=== PATIENT | male | born 1955 | race Hispanic/Latino ===

== ENCOUNTER 2020-07-14 09:03 | Inpatient (IN) | payer MEDICAID, OTHER ==
[~2020-07-14] VITALS: Ht 157.5 cm; Wt 73.0 kg
[2020-07-14] VITALS (20 sets, daily range): BP systolic 98–149; BP diastolic 69–97
[2020-07-14] MEDS ORDERED: MECLIZINE HCL 25 MG TABLET ONE (09:47)
[2020-07-14 10:11] LABS: BASOPHILS % (AUTO) 0.2 % (0.0-5.0); EOSINOPHILS % (AUTO) 0.1 % (0.0-8.0); HEMATOCRIT 32.3 % (42-54); LYMPHOCYTES % (AUTO) 3.4 % (21.0-51.0); MEAN CORPUSCULAR HEMOGLOBIN 38.2 pg (27.0-33.0); MEAN CORPUSCULAR HGB CONC 35.9 g/dL (32.0-36.0); MEAN CORPUSCULAR VOLUME 106.3 fL (79-99); NEUTROPHILS % (AUTO) 91.1 % (40.0-77.0); NUCLEATED RED BLOOD CELLS 0.1 % (0.0-0.19); PLATELET COUNT (AUTO) 162 K/uL (130-400); RED BLOOD CELL COUNT(AUTO) 3.04 MIL/uL (4.50-6.20); RED CELL DISTRIBUTION WIDTH 13.1 % (11.0-15.5); WHITE BLOOD COUNT (AUTO) 17.8 K/uL (4.8-10.8)
[2020-07-14 10:30] LABS: BILIRUBIN,TOTAL 3.7 mg/dL (0.2-1.0); CREATININE 3.3 mg/dL (0.5-1.5); TOTAL PROTEIN, SERUM 6.6 g/dL (6.0-8.3)
[2020-07-14 10:33] LABS: POTASSIUM 2.3 mmol/L (3.5-5.1)
[2020-07-14] MEDS ORDERED: NS-20 MEQ KCL 1000ML 1,000 ML IV ONE (11:04)
[2020-07-14] MEDS ORDERED: VANCOMYCIN PROTOCOL PER PHARMACY IV SCH (11:45)
[2020-07-14] MEDS ORDERED: LACTATED RINGERS 1000ML 2,000 ML IV SCH (11:45)
[2020-07-14] MEDS ORDERED: ZOSYN 3.375GM+NS 50ML 50 ML IV SCH (11:45)
[2020-07-14] MEDS ORDERED: LACTATED RINGERS 1000ML 2,000 ML IV ONE (11:47)
[2020-07-14] MEDS ORDERED: ZOSYN 3.375GM+NS 50ML 50 ML IV ONE (12:02)
[2020-07-14] MEDS ORDERED: NOREPINEPHRIN 4MG/NS 250ML 250 ML IV SCH (12:15)
[2020-07-14] MEDS ORDERED: NOREPINEPHRIN 4MG/NS 250ML 250 ML IV ONE (12:30)
[2020-07-14 13:47] LABS: CREATININE 4.3 mg/dL (0.5-1.5)
[2020-07-14] MEDS ORDERED: TELM1TAB42 PO (14:48)
[2020-07-14] MEDS ORDERED: [UNRECOGNIZED DRUG - OTHER] PO (14:48)
[2020-07-14] MEDS: POTASSIUM CHLORIDE 10MEQ/100ML 100 ML IV PRN ×2 (15:28→21:34)
[2020-07-14] MEDS ORDERED: VANCOMYCIN 1G/250ML KIT 250 ML IV SCH (15:30)
[2020-07-14] MEDS: LACTATED RINGERS 1000ML 1,000 ML IV SCH ×2 (16:53→22:27)
[2020-07-14 18:22] LABS: INR 1.19 (0.85-1.15); PROTHROMBIN TIME 12.8 SEC (9.6-11.6)
[2020-07-14 18:24] LABS: PARTIAL THROMBOPLASTIN TIME 33.6 SEC (26.3-35.5)
[2020-07-14 18:28] LABS: APPEARANCE,URINE SL CLOUDY (CLEAR); BILIRUBIN,URINE SMALL (NEGATIVE); COLOR,URINE YELLOW (YELLOW); GLUCOSE, URINE (UA) NEGATIVE (NEGATIVE); KETONES,URINE NEGATIVE (NEGATIVE); LEUKOCYTE ESTERASE ,URINE MODERATE (NEGATIVE); NITRATE,URINE NEGATIVE (NEGATIVE); OCCULT BLOOD,URINE LARGE (NEGATIVE); PROTEIN,URINE 100 mg/dL (NEGATIVE); UROBILINOGEN,URINE 0.2 mg/dL (0.2-1.0)
[2020-07-14 18:29] LABS: ABG BASE EXCESS 0.5 mmol/L (-2.0-3.0); ABG HCO3 23.2 mmol/L (21.0-28.0); ABG OXYGEN SATURATION 97.7 % (95.0-99.0); ABG PCO2 32 mmHg (35-48)
[2020-07-14 18:41] LABS: AMPHET/METH SCREEN,URINE NEGATIVE (NEGATIVE); BARBITURATE SCREEN, URINE NEGATIVE (NEGATIVE); BENZODIAZEPINES SCREEN,URINE NEGATIVE (NEGATIVE); CANNABINOID SCREEN,URINE NEGATIVE (NEGATIVE); COCAINE SCREEN,URINE NEGATIVE (NEGATIVE); OPIATE SCREEN,URINE NEGATIVE (NEGATIVE); PHENCYCLIDINE SCREEN,URINE NEGATIVE (NEGATIVE)
[2020-07-14 18:52] LABS: BACTERIA,URINE Moderate /HPF (None Seen); SQUAMOUS EPITHELIAL CELL,UR Few /HPF (0-2)
[2020-07-14] MEDS ORDERED: IODIXANOL 320 MG/ML 100 ML VIAL ONE (19:46)
[2020-07-14] MEDS ORDERED: SODIUM BICARB 50MEQ 50ML VIAL 50 ML ONE (19:46)
[2020-07-14] MEDS ORDERED: FENTANYL CITRATE PF 50 MCG/1 ML 2ML VIAL ONE (19:47)
[2020-07-14] MEDS ORDERED: MIDAZOLAM HCL 1 MG/ML 2ML VIAL ONE (19:47)
[2020-07-14] MEDS ORDERED: LIDOCAINE HCL 400MG/20ML VIAL ONE (19:47)
[2020-07-14] MEDS: ZOSYN 3.375GM+NS 50ML 50 ML IV SCH (21:49)
[2020-07-15] VITALS (15 sets, daily range): BP systolic 100–133; BP diastolic 65–85
[2020-07-15] MEDS: LACTATED RINGERS 1000ML 1,000 ML IV SCH ×3 (05:42→20:12)
[2020-07-15 05:45] LABS: BASOPHILS % (AUTO) 0.2 % (0.0-5.0); EOSINOPHILS % (AUTO) 0.7 % (0.0-8.0); HEMATOCRIT 30.1 % (42-54); MEAN CORPUSCULAR HEMOGLOBIN 37.4 pg (27.0-33.0); MEAN CORPUSCULAR HGB CONC 35.5 g/dL (32.0-36.0); MEAN CORPUSCULAR VOLUME 105.2 fL (79-99); MONOCYTES % (AUTO) 4.1 % (3.0-13.0); NEUTROPHILS % (AUTO) 86.3 % (40.0-77.0); PLATELET COUNT (AUTO) 104 K/uL (130-400); RED BLOOD CELL COUNT(AUTO) 2.86 MIL/uL (4.50-6.20); RED CELL DISTRIBUTION WIDTH 13.1 % (11.0-15.5); WHITE BLOOD COUNT (AUTO) 11.3 K/uL (4.8-10.8)
[2020-07-15 06:12] LABS: ALBUMIN 2.4 g/dL (3.5-5.0); BILIRUBIN,TOTAL 1.6 mg/dL (0.2-1.0); CREATININE 3.6 mg/dL (0.5-1.5); POTASSIUM 3.3 mmol/L (3.5-5.1)
[2020-07-15] MEDS: ZOSYN 3.375GM+NS 50ML 50 ML IV SCH ×2 (09:43→21:50)
[2020-07-15] MEDS ORDERED: TAMSULOSIN HCL 0.4 MG CAP.ER.24H PO SCH (09:45)
[2020-07-15] MEDS ORDERED: FOLIC ACID 1 MG TABLET PO SCH (09:45)
[2020-07-15] MEDS ORDERED: THIAMINE HCL 100 MG TABLET PO SCH (09:45)
[2020-07-15 14:06] LABS: CREATININE 3.1 mg/dL (0.5-1.5)
[2020-07-15 14:07] LABS: POTASSIUM 2.8 mmol/L (3.5-5.1)
[2020-07-15] MEDS: POTASSIUM CHLORIDE 10MEQ/100ML 100 ML IV PRN (20:52)
[2020-07-16] VITALS (20 sets, daily range): BP systolic 99–164; BP diastolic 56–93
[2020-07-16] MEDS: LACTATED RINGERS 1000ML 1,000 ML IV SCH ×4 (01:42→19:57)
[2020-07-16] MEDS: POTASSIUM CHLORIDE 10MEQ/100ML 100 ML IV PRN ×3 (01:44→08:06)
[2020-07-16 03:53] LABS: BASOPHILS % (AUTO) 0.4 % (0.0-5.0); EOSINOPHILS % (AUTO) 4.9 % (0.0-8.0); HEMATOCRIT 28.5 % (42-54); LYMPHOCYTES % (AUTO) 16.8 % (21.0-51.0); MEAN CORPUSCULAR HEMOGLOBIN 37.1 pg (27.0-33.0); MEAN CORPUSCULAR HGB CONC 35.8 g/dL (32.0-36.0); MEAN CORPUSCULAR VOLUME 103.6 fL (79-99); MONOCYTES % (AUTO) 7.2 % (3.0-13.0); PLATELET COUNT (AUTO) 108 K/uL (130-400); RED BLOOD CELL COUNT(AUTO) 2.75 MIL/uL (4.50-6.20); RED CELL DISTRIBUTION WIDTH 12.7 % (11.0-15.5); WHITE BLOOD COUNT (AUTO) 6.8 K/uL (4.8-10.8)
[2020-07-16 04:11] LABS: ALBUMIN 2.2 g/dL (3.5-5.0); CREATININE 2.3 mg/dL (0.5-1.5); TOTAL PROTEIN, SERUM 5.7 g/dL (6.0-8.3)
[2020-07-16] MEDS: ZOSYN 3.375GM+NS 50ML 50 ML IV SCH ×2 (08:22→20:47)
[2020-07-16] MEDS: THIAMINE HCL 100 MG TABLET PO SCH (08:22)
[2020-07-16] MEDS: FOLIC ACID 1 MG TABLET PO SCH (08:23)
[2020-07-16] MEDS ORDERED: POTASSIUM CHLORIDE 10% ELIXIR 20 MEQ/15 ML UDCUP ONE (08:33)
[2020-07-16 12:01] LABS: CREATININE 1.9 mg/dL (0.5-1.5); POTASSIUM 3.3 mmol/L (3.5-5.1)
[2020-07-16] MEDS ORDERED: LIDOCAINE HCL-MPF 1% 2ML VIAL IJ PRN (13:00)
[2020-07-16] MEDS ORDERED: POTASSIUM CHLORIDE 20MEQ/100ML 100 ML IV PRN (13:00)
[2020-07-16] MEDS: KCL 20 MEQ ERTAB PO PRN ×2 (13:45→16:39)
[2020-07-16] MEDS ORDERED: 0.9%NACL 100ML 100 ML IV ONE (20:51)
[2020-07-16] MEDS ORDERED: TAMSULOSIN HCL 0.4 MG CAP.ER.24H PO SCH (21:00)
[2020-07-17 03:03] VITALS: BP 147/98
[2020-07-17 05:14] LABS: BASOPHILS % (AUTO) 0.8 % (0.0-5.0); EOSINOPHILS % (AUTO) 5.7 % (0.0-8.0); HEMATOCRIT 28.2 % (42-54); LYMPHOCYTES % (AUTO) 19.3 % (21.0-51.0); MEAN CORPUSCULAR HEMOGLOBIN 36.8 pg (27.0-33.0); MEAN CORPUSCULAR HGB CONC 35.1 g/dL (32.0-36.0); MEAN CORPUSCULAR VOLUME 104.8 fL (79-99); MONOCYTES % (AUTO) 10.3 % (3.0-13.0); NEUTROPHILS % (AUTO) 63.3 % (40.0-77.0); PLATELET COUNT (AUTO) 104 K/uL (130-400); RED BLOOD CELL COUNT(AUTO) 2.69 MIL/uL (4.50-6.20); RED CELL DISTRIBUTION WIDTH 13.1 % (11.0-15.5); WHITE BLOOD COUNT (AUTO) 5.2 K/uL (4.8-10.8)
[2020-07-17 05:23] LABS: CREATININE 1.3 mg/dL (0.5-1.5)
[2020-07-17] MEDS: POTASSIUM CHLORIDE 10% ELIXIR 20 MEQ/15 ML UDCUP PO PRN ×4 (05:58→17:10)
[2020-07-17 08:00] VITALS: BP 132/78
[2020-07-17] MEDS: ZOSYN 3.375GM+NS 50ML 50 ML IV SCH (09:37)
[2020-07-17] MEDS: FOLIC ACID 1 MG TABLET PO SCH (09:38)
[2020-07-17] MEDS: THIAMINE HCL 100 MG TABLET PO SCH (09:38)
[2020-07-17] MEDS: KCL 20 MEQ ERTAB PO PRN (10:13)
[2020-07-17 11:40] VITALS: BP 147/88
[2020-07-17] MEDS ORDERED: TAMS-1 PO (13:15)
[2020-07-17 16:00] VITALS: BP 143/85
[2020-08-29] MEDS ORDERED: LOSA50TA64 PO (16:19)
[2020-09-19] MEDS ORDERED: CEFD300C3 PO (13:50)
[2020-09-19] MEDS ORDERED: TAMS-1 PO (13:57)
== END 2020-07-17 19:30 | disposition home or self-care (01) | DRG 871 ==
LOC: EDH 09:03 → EDHIP 09:04 → 2DH 14:44 → 3DH 07-16 23:44
PROVIDERS: ADMIT Internal Medicine; ATTEND Internal Medicine
PROC: 0F943ZZ Drainage of Gallbladder, Percutaneous Approach (ICD-10-PCS; principal; 2020-07-14)
DX: A41.50 Gram-negative sepsis, unspecified (principal); R65.21 Severe sepsis with septic shock; N17.9 Acute kidney failure, unspecified; E87.2 Acidosis; N39.0 Urinary tract infection, site not specified; K81.0 Acute cholecystitis; E87.1 Hypo-osmolality and hyponatremia; E87.6 Hypokalemia; E86.9 Volume depletion, unspecified; K21.9 Gastro-esophageal reflux disease without esophagitis; R53.81 Other malaise; B96.1 Klebsiella pneumoniae [K. pneumoniae] as the cause of diseases classified elsewhere; E11.9 Type 2 diabetes mellitus without complications; I10 Essential (primary) hypertension; N40.0 Benign prostatic hyperplasia without lower urinary tract symptoms; R62.7 Adult failure to thrive; Z20.822 Contact with and (suspected) exposure to COVID-19; Z68.29 Body mass index [BMI] 29.0-29.9, adult; Z87.891 Personal history of nicotine dependence; Z90.49 Acquired absence of other specified parts of digestive tract
CPT/HCPCS: 10030; 36415; 36600; 47490; 70450; 71045; 74176; 76705; 80048; 80053; 80305; 81001; 82803; 82948; 83540; 83550; 83605; 83735; 84145; 84484; 85025; 85610; 85730; 87040; 87070; 87076; 87077; 87088; 87186; 87426; 93005; 93306; 93356; 97039; G0378; J1644; J2250; J2543; J3010; J3370; J3480; J3490; J7120; Q9967; U0003

== ENCOUNTER 2020-09-02 09:15 | Inpatient (IN) | payer MEDICAID ==
[2020-08-26 12:53] LABS: BASOPHILS % (AUTO) 0.6 % (0.0-5.0); EOSINOPHILS % (AUTO) 9.1 % (0.0-8.0); LYMPHOCYTES % (AUTO) 32.3 % (21.0-51.0); MEAN CORPUSCULAR HEMOGLOBIN 36.4 pg (27.0-33.0); MEAN CORPUSCULAR HGB CONC 34.2 g/dL (32.0-36.0); MEAN CORPUSCULAR VOLUME 106.5 fL (79-99); NEUTROPHILS % (AUTO) 49.6 % (40.0-77.0); PLATELET COUNT (AUTO) 215 K/uL (130-400); RED BLOOD CELL COUNT(AUTO) 3.38 MIL/uL (4.50-6.20); RED CELL DISTRIBUTION WIDTH 15.1 % (11.0-15.5); WHITE BLOOD COUNT (AUTO) 5.3 K/uL (4.8-10.8)
[2020-08-26 12:58] LABS: BILIRUBIN,TOTAL 1.8 mg/dL (0.2-1.0); CREATININE 0.9 mg/dL (0.5-1.5); POTASSIUM 3.7 mmol/L (3.5-5.1); TOTAL PROTEIN, SERUM 7.7 g/dL (6.0-8.3)
[2020-08-29 16:30] VITALS: BP 125/80
[2020-09-02] VITALS (31 sets, daily range): BP systolic 106–189; BP diastolic 55–111
[~2020-09-02] VITALS: Ht 154.9 cm; Wt 73.8 kg
[2020-09-02] MEDS: SODIUM CHLORIDE 0.9% 500ML 500 ML IV SCH ×2 (05:00→13:30)
[~2020-09-02 09:15] MED LIST: LOSA50TA64 PO; TAMS-1 PO
[2020-09-02] MEDS ORDERED: LACTATED RINGERS 1000ML 1,000 ML IV ONE (10:48)
[2020-09-02] MEDS ORDERED: LIDOCAINE PF 2% 5ML ABBOJECT ONE (11:24)
[2020-09-02] MEDS ORDERED: PROPOFOL 10 MG/ML 20ML VIAL IV ONE (11:24)
[2020-09-02] MEDS ORDERED: FENTANYL CITRATE PF 50 MCG/1 ML 2ML VIAL ONE ×2 (11:24→13:22)
[2020-09-02] MEDS ORDERED: ROCURONIUM 10MG/1ML SYR 10 MG/ML ML ONE (11:25)
[2020-09-02] MEDS ORDERED: MIDAZOLAM HCL 1 MG/ML 2ML VIAL ONE (11:29)
[2020-09-02] MEDS ORDERED: IOHEXOL-350 50ML VIAL IV ONE (11:43)
[2020-09-02] MEDS: CEFAZOLIN SODIUM 1 GM VIAL IVP SCH ×3 (11:49→20:18)
[2020-09-02] MEDS ORDERED: BUPIVACAINE/PF 0.5% 30ML VIAL ONE (12:38)
[2020-09-02] MEDS ORDERED: EPHEDRINE SULFATE 50 MG/ML AMPULE ONE (13:07)
[2020-09-02] MEDS ORDERED: NEOSTIGMINE 5MG/5ML SYR IV ONE (13:37)
[2020-09-02] MEDS ORDERED: GLYCOPYRROLATE 1 MG/5 ML SYRINGE ONE (13:37)
[2020-09-02] MEDS ORDERED: LABETALOL HCL 5 MG/ML 20ML VIAL IV ONE (14:03)
[2020-09-02] MEDS ORDERED: MEPERIDINE-PF 25 MG/ML SYG ONE ×2 (14:15→14:40)
[2020-09-02] MEDS ORDERED: HYDRALAZINE HCL 20 MG/ML VIAL ONE (14:33)
[2020-09-02] MEDS ORDERED: MORPHINE SULFATE 4 MG/1ML SYG IVP PRN (19:00)
[2020-09-02] MEDS ORDERED: ONDANSETRON HCL 4 MG/2 ML VIAL IVP PRN (19:00)
[2020-09-02] MEDS: LACTATED RINGERS 1000ML 1,000 ML IV SCH ×2 (20:18→23:59)
[2020-09-02] MEDS: KETOROLAC TROMETHAMINE 15MG/ML IV SCH (20:18)
[2020-09-03] MEDS: KETOROLAC TROMETHAMINE 15MG/ML IV SCH ×4 (01:53→19:55)
[2020-09-03 03:54] VITALS: BP 146/94
[2020-09-03] MEDS: CEFAZOLIN SODIUM 1 GM VIAL IVP SCH (04:12)
[2020-09-03] MEDS: LACTATED RINGERS 1000ML 1,000 ML IV SCH ×2 (04:38→15:34)
[2020-09-03 05:21] LABS: HEMATOCRIT 27.2 % (42-54); MEAN CORPUSCULAR HEMOGLOBIN 37.7 pg (27.0-33.0); MEAN CORPUSCULAR HGB CONC 35.7 g/dL (32.0-36.0); MEAN CORPUSCULAR VOLUME 105.8 fL (79-99); PLATELET COUNT (AUTO) 152 K/uL (130-400); RED BLOOD CELL COUNT(AUTO) 2.57 MIL/uL (4.50-6.20); RED CELL DISTRIBUTION WIDTH 14.9 % (11.0-15.5); WHITE BLOOD COUNT (AUTO) 7.5 K/uL (4.8-10.8)
[2020-09-03 05:45] LABS: ALBUMIN 3.2 g/dL (3.5-5.0); BILIRUBIN,TOTAL 1.9 mg/dL (0.2-1.0); CREATININE 1.2 mg/dL (0.5-1.5); POTASSIUM 3.8 mmol/L (3.5-5.1); TOTAL PROTEIN, SERUM 6.3 g/dL (6.0-8.3)
[2020-09-03 08:19] VITALS: BP 151/98
[2020-09-03 12:00] VITALS: BP 180/107
[2020-09-03] MEDS: DOCUSATE SODIUM 100 MG CAP PO SCH ×2 (12:19→19:54)
[2020-09-03] MEDS: LOSARTAN 50 MG TABLET PO SCH (15:33)
[2020-09-03 16:00] VITALS: BP 129/83
[2020-09-03 19:45] VITALS: BP 147/90
[2020-09-03] MEDS: TAMSULOSIN HCL 0.4 MG CAP.ER.24H PO SCH (19:54)
[2020-09-04] VITALS (8 sets, daily range): BP systolic 86–133; BP diastolic 50–83
[2020-09-04] MEDS: KETOROLAC TROMETHAMINE 15MG/ML IV SCH ×4 (01:28→18:15)
[2020-09-04] MEDS: LACTATED RINGERS 1000ML 1,000 ML IV SCH ×3 (01:55→19:51)
[2020-09-04 05:35] LABS: HEMATOCRIT 25.8 % (42-54); MEAN CORPUSCULAR HGB CONC 33.7 g/dL (32.0-36.0); MEAN CORPUSCULAR VOLUME 106.6 fL (79-99); RED BLOOD CELL COUNT(AUTO) 2.42 MIL/uL (4.50-6.20); RED CELL DISTRIBUTION WIDTH 14.9 % (11.0-15.5); WHITE BLOOD COUNT (AUTO) 10.4 K/uL (4.8-10.8)
[2020-09-04 05:48] LABS: CREATININE 1.3 mg/dL (0.5-1.5)
[2020-09-04] MEDS ORDERED: POTASSIUM CHLORIDE 20 MEQ ERTAB PO PRN (07:30)
[2020-09-04] MEDS ORDERED: POTASSIUM CHLORIDE 20MEQ/100ML 100 ML IV PRN (07:30)
[2020-09-04] MEDS ORDERED: LIDOCAINE HCL-MPF 1% 2ML VIAL IV PRN (07:30)
[2020-09-04] MEDS ORDERED: POTASSIUM CHLORIDE 10% ELIXIR 20 MEQ/15 ML UDCUP PO PRN (07:30)
[2020-09-04] MEDS: LOSARTAN 50 MG TABLET PO SCH (08:41)
[2020-09-04] MEDS: DOCUSATE SODIUM 100 MG CAP PO SCH ×2 (08:41→19:50)
[2020-09-04] MEDS: ACETAMINOPHEN-CODEINE 300/30MG TAB PO PRN (08:42)
[2020-09-04 09:13] LABS: ALBUMIN 2.9 g/dL (3.5-5.0); BILIRUBIN,TOTAL 4.2 mg/dL (0.2-1.0); CREATININE 1.2 mg/dL (0.5-1.5); TOTAL PROTEIN, SERUM 6.1 g/dL (6.0-8.3)
[2020-09-04] MEDS: TAMSULOSIN HCL 0.4 MG CAP.ER.24H PO SCH (19:50)
[2020-09-05] MEDS: KETOROLAC TROMETHAMINE 15MG/ML IV SCH ×3 (01:32→13:00)
[2020-09-05 03:21] VITALS: BP 93/57
[2020-09-05] MEDS: LACTATED RINGERS 1000ML 1,000 ML IV SCH (07:00)
[2020-09-05 08:10] VITALS: BP 120/80
[2020-09-05 08:18] LABS: ALBUMIN 2.7 g/dL (3.5-5.0); BILIRUBIN,DIRECT 1.1 mg/dL (0.0-0.3); BILIRUBIN,TOTAL 3.6 mg/dL (0.2-1.0)
[2020-09-05] MEDS: LOSARTAN 50 MG TABLET PO SCH (09:14)
[2020-09-05] MEDS: DOCUSATE SODIUM 100 MG CAP PO SCH (09:14)
[2020-09-05] MEDS: ACETAMINOPHEN-CODEINE 300/30MG TAB PO PRN (09:15)
[2020-09-05 11:35] VITALS: BP 95/58
== END 2020-09-05 15:30 | disposition home or self-care (01) | DRG 261 ==
LOC: DAH 09:15 → DAHIP 09:16 → DAH 09:16 → OBSVTOIN 09:16 → 3DH 16:52
PROVIDERS: ADMIT Surgery; ATTEND Surgery
PROC: BF121ZZ Fluoroscopy of Gallbladder using Low Osmolar Contrast (ICD-10-PCS; 2020-09-02)
PROC: 0FP440Z Removal of Drainage Device from Gallbladder, Percutaneous Endoscopic Approach (ICD-10-PCS; 2020-09-02)
PROC: 0FT44ZZ Resection of Gallbladder, Percutaneous Endoscopic Approach (ICD-10-PCS; principal; 2020-09-02 12:36)
DX: K81.0 Acute cholecystitis (principal); R18.8 Other ascites; D64.9 Anemia, unspecified; E11.9 Type 2 diabetes mellitus without complications; I10 Essential (primary) hypertension; N40.0 Benign prostatic hyperplasia without lower urinary tract symptoms; Z20.822 Contact with and (suspected) exposure to COVID-19; Z98.49 Cataract extraction status, unspecified eye
CPT/HCPCS: 36415; 74181; 80048; 80053; 80076; 82948; 84132; 85025; 85027; 93005; C1758; C9803; G0378; J0360; J0690; J1885; J2001; J2175; J2250; J2270; J2405; J2704; J2710; J3010; J3480; J3490; J7030; J7120; Q9967; U0003

== ENCOUNTER 2020-10-01 09:58 | Day surgery (SDC) | payer MEDICAID ==
[~2020-10-01 09:58] MED LIST changes: +CEFD300C3 PO
[2020-10-01 11:23] LABS: CREATININE 0.8 mg/dL (0.5-1.5); POTASSIUM 4.7 mmol/L (3.5-5.1)
[2020-10-01 12:15] LABS: INR 1.07 (0.85-1.15); PROTHROMBIN TIME 11.6 SEC (9.6-11.6)
[2020-10-01 12:16] LABS: PARTIAL THROMBOPLASTIN TIME 26.9 SEC (26.3-35.5)
[2020-10-01] MEDS ORDERED: SODIUM CHLORIDE 0.9% 1000ML 1,000 ML IV ONE (15:11)
== END 2020-10-01 13:50 | disposition home or self-care (01) ==
LOC: DAH 09:58
PROVIDERS: ATTEND Surgery
DX: K80.13 Calculus of gallbladder with acute and chronic cholecystitis with obstruction (principal); Z79.01 Long term (current) use of anticoagulants
CPT/HCPCS: 36415; 49423; 49424; 74150; 75984; 76080; 80048; 85610; 85730; A4215; A4216; A4221; A4222; A4223 ×3; A4606; A4663; C1729; C1769 ×2; J7030

== ENCOUNTER 2020-10-01 10:36 | Outpatient (CLI) | payer MEDICAID ==
[2020-10-01] MEDS ORDERED: IODIXANOL 320 MG/ML 100 ML VIAL ONE (11:46)
[2020-10-01] MEDS ORDERED: LIDOCAINE HCL 1% MDV 50ML VIAL ONE (11:46)
== END 2020-10-01 13:50 | disposition home or self-care (01) ==
LOC: RAH 10:36
PROVIDERS: ATTEND Surgery
DX: K80.13 Calculus of gallbladder with acute and chronic cholecystitis with obstruction (principal)
CPT/HCPCS: J1644; J3490; Q9967

== ENCOUNTER 2020-10-02 11:06 | Emergency (ER) | payer MEDICAID | END 2020-10-02 13:43 | disposition home or self-care (01) | LOC: EDH 11:06 | DX: G89.18 Other acute postprocedural pain (principal); E11.9 Type 2 diabetes mellitus without complications; I10 Essential (primary) hypertension; Z90.49 Acquired absence of other specified parts of digestive tract; Z87.891 Personal history of nicotine dependence | CPT/HCPCS: 99281 ==

== ENCOUNTER → 2020-10-09 | Outpatient (CLI) | payer MEDICAID ==
[2020-10-09 13:24] LABS: CREATININE 0.7 mg/dL (0.5-1.5); POTASSIUM 3.7 mmol/L (3.5-5.1)
== END | disposition home or self-care (01) ==
LOC: RAH 12:43
PROVIDERS: ATTEND Surgery
DX: R10.9 Unspecified abdominal pain (principal); L02.211 Cutaneous abscess of abdominal wall
CPT/HCPCS: 36415; 80048

== ENCOUNTER → 2020-10-16 | Outpatient (CLI) | payer MEDICAID ==
[~2020-10-16] MED LIST changes: +IOHEXOL-350 75 ML VIAL IV ONE
== END | disposition home or self-care (01) ==
LOC: RAH 09:35
PROVIDERS: ATTEND Surgery
DX: L02.211 Cutaneous abscess of abdominal wall (principal); I70.8 Atherosclerosis of other arteries
CPT/HCPCS: 74160; Q9967

== ENCOUNTER 2023-10-10 19:16 | Emergency (ER) | payer MEDICARE ==
[~2023-10-10] VITALS: Ht 157.5 cm; Wt 68.0 kg
[~2023-10-10 19:16] MED LIST changes: -IOHEXOL-350 75 ML VIAL IV ONE
[2023-10-10 20:25] VITALS: BP 140/79; PULSE 82; RESP 20
[2023-10-10 21:58] LABS: BASOPHILS # (AUTO) 0.03 K/uL (0.00-0.20); BASOPHILS % (AUTO) 0.6 % (0.0-5.0); EOSINOPHILS # (AUTO) 0.36 K/uL (0.00-0.70); EOSINOPHILS % (AUTO) 6.7 % (0.0-8.0); HEMATOCRIT 31.9 % (42-54); IMMATURE GRANULOCYTE ABSOLUTE 0.04 K/uL (0-1); LYMPHOCYTES # (AUTO) 1.7 K/uL (1.0-4.8); LYMPHOCYTES % (AUTO) 30.5 % (21.0-51.0); MEAN CORPUSCULAR HEMOGLOBIN 42.2 pg (27.0-33.0); MEAN CORPUSCULAR HGB CONC 34.8 g/dL (32.0-36.0); MEAN CORPUSCULAR VOLUME 121.3 fL (79-99); MONOCYTES # (AUTO) 0.3 K/uL (0.1-1.0); MONOCYTES % (AUTO) 5.2 % (3.0-13.0); NEUTROPHILS # (AUTO) 3.1 K/uL (1.8-7.7); NEUTROPHILS % (AUTO) 56.3 % (40.0-77.0); PLATELET COUNT (AUTO) 168 K/uL (130-400); RED BLOOD CELL COUNT(AUTO) 2.63 MIL/uL (4.50-6.20); RED CELL DISTRIBUTION WIDTH 15.6 % (11.0-15.5); WHITE BLOOD COUNT (AUTO) 5.4 K/uL (4.8-10.8)
[2023-10-10 22:13] LABS: INR <= 0.93 (0.85-1.15); PROTHROMBIN TIME 10.7 SEC (9.6-11.6)
[2023-10-10 22:14] LABS: CREATININE 0.9 mg/dL (0.5-1.3); POTASSIUM 4.5 mmol/L (3.5-5.1)
[2023-10-10 22:15] LABS: PARTIAL THROMBOPLASTIN TIME 23.9 SEC (26.3-35.5)
[2023-10-10] MEDS ORDERED: FAMO-136 PO (22:55)
[2023-10-10] MEDS ORDERED: ONDA-243 PO (22:55)
== END 2023-10-10 22:59 | disposition home or self-care (01) ==
LOC: EDH 19:16
DX: R10.9 Unspecified abdominal pain (principal); I10 Essential (primary) hypertension
CPT/HCPCS: 36415; 74176; 80048; 83605; 83690; 84145; 84484; 85025; 85610; 85730; 93005